=== PATIENT | male | born 1975 | race Caucasian/White ===

== ENCOUNTER → 2016-12-23 | Day surgery (SDC) | payer MEDICARE, OTHER ==
[~2016-12-23] MED LIST: NO MEDICATIONS
--- NOTE | ~2016-12-23 | OR ---
Unit #: [id number] #: [id number] Patient: PRICILA MCGILL [id number] [address] [id number] O MR#: [id number] NAME: PRICILA MCGILL ROOM: Date of Procedure: 12/23/2016 Admission Date: 12/23/2016 Surgeon: Macho Swift M.D. : 1975 Attending Physician: Macho Swift M.D. OPERATIVE REPORT PREOPERATIVE DIAGNOSES Hematochezia and family history of colon cancer. PROCEDURES PERFORMED 1. Colonoscopy and polypectomy. 2. Colonoscopy and internal hemorrhoidal band ligation. POSTOPERATIVE DIAGNOSES 1. The patient had 2 sessile polyps, one each in the ascending colon and sigmoid colon. Both were sessile and were removed using snare polypectomy. They were 5 to 8 mm each. 2. Medium-sized internal hemorrhoids, two of these were treated using rubber-band ligation. 3. Rest of the examination up to cecum and terminal ileum was normal. The quality of the prep being excellent. RECOMMENDATIONS 1. Follow up results of polyp histology. 2. Consider repeat colonoscopy in 5 years. 3. Avoid straining of the stool for the next couple of days. 4. Use p.r.n. pain medication and laxative pill prescribed for the next couple of days. SEDATION USED MAC. DESCRIPTION OF PROCEDURE Following detailed explanation of potential risks and complications of a colonoscopy, namely perforation, bleeding, and complications related to sedation, the patient was brought to GI lab and laid in the left lateral decubitus position. A digital rectal examination was performed, which was normal. Lubricated tip of the Olympus video colonoscope was inserted through the anus and advanced under direct vision. The scope was advanced and passed up to sigmoid into descending colon. No diverticula were noticed in this area. The scope tip was then navigated all the way up to cecum with visualization of the ileocecal valve and the appendiceal orifice. Preparation was excellent with good visualization and photodocumentation was obtained. Last few inches of the terminal ileum also visualized after intubation of the ileocecal valve and appeared normal. Successive segments of the colonic mucosa were examined upon withdrawal. The patient was noted to have 2 sessile polyps, one each in the mid ascending colon and proximal sigmoid colon. Both were sessile and Unit #: [id number] #: [id number] Patient: PRICLIA MCGILL measured 5 to 8 mm each. Each of the 2 polyps was removed using snare polypectomy. They were retrieved and sent for histology. Excellent hemostasis was achieved and photodocumentation was obtained. No additional polyps were found. The patient did not have any diverticulosis; however, did have medium-sized internal hemorrhoids seen on direct examination as well as during retroflexion. The scope was then withdrawn. A rapid shooter band ligator assembly was mounted on the scope tip. The patient was reintubated in the retroflexed position. Two of the hemorrhoids were treated using rubber-band ligation. Excellent hemostasis was achieved and photodocumentation was obtained. The scope was then withdrawn. The patient returned to recovery area. He tolerated the procedure without any postprocedure complications. Dictated by.Christina Cerna/jessica TD: 12/24/2016 05:07 JOB #: [id number] OPERATIVE REPORT X Macho Swift MD X PROCEDURE OPERATIVE NOTE
== END | disposition home or self-care (01) ==
LOC: COPS 12:49
DX: D12.2 Benign neoplasm of ascending colon (principal); D12.5 Benign neoplasm of sigmoid colon; K64.8 Other hemorrhoids; Z80.0 Family history of malignant neoplasm of digestive organs; K92.1 Melena; J45.909 Unspecified asthma, uncomplicated; F17.200 Nicotine dependence, unspecified, uncomplicated
CPT/HCPCS: 88305; J2250; J3010